=== PATIENT | female | born 1960 | race Caucasian/White ===

== ENCOUNTER 2017-08-19 23:19 | Observation (INO) | payer OTHER ==
[~2017-08-19] VITALS: Ht 172.7 cm; Wt 87.5 kg
--- NOTE | 2017-08-19 23:22 | ED CARDIAC/CP/PALPITATIONS ---
History of Present Illness General Chief Complaint: General Adult Stated Complaint: " I'M HAVING CHEST PAIN/ABD PAIN X1HOUR" Source: patient Exam Limitations: no limitations Vital Signs & Intake/Output Vital Signs & Intake/Output Vital Signs Date Time Temp Pulse Resp B/P B/P Pulse O2 O2 Flow FiO2 Mean Ox Delivery Rate 08/20 0320 69 18 142/65 96 Room Air 08/20 0300 96.2 69 18 151/70 97 Room Air 08/19 2346 Room Air 08/19 2325 95.5 71 18 156/82 96 Room Air ED Intake and Output 08/20 0000 08/19 1200 Intake Total Output Total Balance Patient 290 lb Weight Weight Reported by Patient Measurement Method Allergies Coded Allergies: codeine (UNKNOWN 08/20/17) Reconcile Medications Ibuprofen 600 MG TABLET 1 TAB PO TID PRN pain with food Lisinopril/Hydrochlorothiazide (Lisinopril-Hctz 20-12.5 MG Tab) 20 MG-12.5 MG TABLET 1 TAB PO DAILY HTN (Reported) Triage Nurses Notes Reviewed? yes Onset: Abrupt Duration: hour(s): Timing: single episode today Quality/Severity: mild, moderate Location: central Radiation: no radiation Activities at Onset: "I was snow blowing today" Prior Chest Pain/Card Workup: no prior cardiac workup Modifying Factors: Worsens With: palpation. Aspirin Today: no aspirin today Associated Symptoms: mid epigastric discomfort HPI: 57 yo woman h/o htn, presents with 1 hour of parasternal chest pain and epigastric discomfort. She notes that it began after snow blowing earlier this evening. She denies dizziness, nausea, vomiting, diarrhea, wheezing, syncopal type symptoms. She is otherwise well. Past History Travel History Traveled to [place] past 21 day No Medical History Any Pertinent Medical History? 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 No Review of Systems Review of Systems Constitutional: Reports: no symptoms. EENTM: Reports: no symptoms. Respiratory: Reports: no symptoms. Cardiovascular: Reports: no symptoms. GI: Reports: no symptoms. Genitourinary: Reports: no symptoms. Musculoskeletal: Reports: no symptoms. Skin: Reports: no symptoms. Neurological/Psychological: Reports: no symptoms. Hematologic/Endocrine: Reports: no symptoms. Immunologic/Allergic: Reports: no symptoms. All Other Systems: Reviewed and Negative Physical Exam Physical Exam General Appearance: well developed/nourished, mild distress Head: atraumatic Eyes: Bilateral: normal appearance. Ears, Nose, Throat: normal pharynx, normal ENT inspection, hearing grossly normal Neck: normal inspection, supple, full range of motion Respiratory: normal breath sounds, no respiratory distress, quiet respiration, lungs clear, parasternal chest wall tenderness and xiphoid tenderness to palpation Cardiovascular: regular rate/rhythm Gastrointestinal: normal bowel sounds, soft, non-tender, no organomegaly Back: normal inspection Extremities: normal inspection, normal capillary refill, normal range of motion, no edema Neurologic/Psych: no motor/sensory deficits, awake, alert, oriented x 3 Skin: intact, normal color, warm/dry Core Measures ACS in differential dx? Yes No ASA d/t aspirin given CVA/TIA Diagnosis No Sepsis Present: No Sepsis Focused Exam Completed? No Progress Differential Diagnosis: AMI, CHF/pulm edema, costochondritis, pulmonary embolism , unstable angina Plan of Care: Orders Procedure Date/time Status Nothing by Mouth 08/20 B Active Saline Lock 08/[address] in observation 08/20 405 Active Misc Message 08/20 0406 Active ED Holding Orders 08/20 0406 Active Vital Signs 08/20 0406 Active Code Status 08/20 0406 Active EKG 08/20 0321 Active TROPONIN LEVEL 08/20 0215 Complete EKG 08/20 0215 Active TROPONIN LEVEL 08/19 232 Complete LIPASE 08/19 232 Complete HEPATIC FUNCTION PANEL 08/19 232 Complete D-DIMER 08/19 232 Complete CBC WITHOUT DIFFERENTIAL 08/19 2321 Complete BASIC METABOLIC PANEL 08/19 232 Complete AMYLASE 08/19 2321 Complete EKG 08/19 232 Active Laboratory Tests 08/20/17 0158: Troponin I < 0.01 08/19/17 2350: Anion Gap 11, Estimated GFR > 60, BUN/Creatinine Ratio 31.3 H, Glucose 148 H, Calcium 9.6, Total Bilirubin 0.4, Direct Bilirubin 0.3, AST 42 H, ALT 71 H, Alkaline Phosphatase 115, Troponin I < 0.01, Total Protein 7.5, Albumin 4.0, Amylase 32, Lipase 147, D-Dimer High Sensitivty < 200, CBC w Diff NO MAN DIFF REQ, RBC 5.54 H, MCV 85.5, MCH 28.7, RDW 13.6, MPV 8.8, Gran % 66.9, Lymphocytes % 22.4, Monocytes % 6.4, Eosinophils % 3.5, Basophils % 0.8, Absolute Granulocytes 6.7 H, Absolute Lymphocytes 2.3, Absolute Monocytes 0.6, Absolute Eosinophils 0.4, Absolute Basophils 0.1, PUBS MCHC 33.5 Diagnostic Imaging: Viewed by Me: Radiology Read. Discussed w/RAD: Radiology Read. CXR Impression: bronchial wall thickening... full report below. Initial ED EKG: normal axis, normal intervals, normal p-waves, normal QRS complex, normal sinus rhythm Repeat EKG: unchanged Comments: ekg #3 (post-nitro)... nsr. no acute changes. Departure Departure Disposition: HOME OR SELF CARE Condition: Stable Clinical Impression Primary Impression: Chest pain Referrals: Adam Johnson DO (PCP/Family) Departure Forms: Customer Survey General Discharge Information Prescriptions: Current Visit Scripts Ibuprofen 1 TAB PO TID PRN pain #30 TAB with food Observation Note Spoke With: Rosi PHILIP PHD,Jeffry Lamas Physician Advisor Notified: ISAURA DAVID DO Place Patient In: Non-ED OBS Care Area Rationale for Observation: My rational for observation is as follows . pt with chest pain with several risk factors... htn, smoking... also with nitro responsive chest pain.... pt merits serial trop/ekg, consider stress vs cath. no heparin since chest pain free after minimal intervention and benign ekg. Critical Care Note Critical Care Note Critical Care Time: non-applicable
[2017-08-19] MEDS ORDERED: LISINOPRIL-HCT1 EACH PO (23:37)
[2017-08-20 00:07] LABS: ABSOLUTE BASOPHIL COUNT 0.1 /CUMM (0.0-0.2); ABSOLUTE EOSINOPHIL COUNT 0.4 /CUMM (0.0-0.7); ABSOLUTE GRANULOCYTE CT 6.7 /CUMM (1.4-6.5); ABSOLUTE LYMPH COUNT 2.3 /CUMM (1.2-3.4); ABSOLUTE MONOCYTE COUNT 0.6 /CUMM (0.10-0.60); BASOPHIL % 0.8 % (0.0-2.0); EOSINOPHIL % 3.5 % (0-5); GRANULOCYTE % 66.9 % (42.2-75.2); HEMATOCRIT 47.4 % (37-47); MEAN CORPUSCULAR HGB 28.7 PG (27.0-31.0); MEAN CORPUSCULAR HGB CONC 33.5 G/DL (33.0-37.0); MEAN CORPUSCULAR VOLUME 85.5 FL (81.0-99.0); MEAN PLATELET VOLUME 8.8 FL (7.4-10.4); PLATELET COUNT 188 /CUMM (130-400); RBC DISTRIBUTION WIDTH 13.6 % (11.5-14.5); RED BLOOD CELL CT 5.54 /CUMM (4.20-5.40); WHITE BLOOD CELL COUNT 10.1 /CUMM (4.8-10.8)
--- NOTE | 2017-08-20 00:10 | RADIOLOGY REPORT ---
EXAMINATION: XR PORTABLE CHEST CLINICAL INFORMATION: Chest pain COMPARISON: 06/22/2017 TECHNIQUE: Portable frontal view of the chest was obtained. FINDINGS: Mild elevation of the left hemidiaphragm is unchanged. No consolidation, edema, or effusion. Bronchial wall thickening present. No pneumothorax. The cardiomediastinal silhouette is unchanged. There is a tortuous aorta. No acute osseous abnormality. IMPRESSION: No consolidation. Bronchial wall thickening can be seen with a small airways process such as asthma or atypical/viral infection.
[2017-08-20] MEDS ORDERED: IBUPROFEN600 M1 PO (02:52)
--- NOTE | 2017-08-20 04:54 | History & Physical ---
General Information and HPI MD Statement: I have seen and personally examined MILLY NEWTON and documented this H&P. The patient is a 57 year old F who presented with a patient stated chief complaint of [atypical chest pain]. Source of Information: patient Exam Limitations: no limitations History of Present Illness: 57-year-old morbidly obese woman presented at the emergency room complaining of chest pain. PMH: hypertension, obesity, acid reflux and nicotine dependence. 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 Patient reports that yesterday evening at 3 PM 2 hours after blowing snow, while she was watching TV she developed a retrosternal, crushing, 8outof- 10 pain. Pain was constant; not worsened with movements or use of her upper body and was not improving with lying still in bed. Pain was accompanied by soreness/numbness of her both arms and tingling in the left side of her jaw, difficulty breathing, and lightheadedness. Initially she thought that this is a GI upset related to her reflux and will resolve by itself. Pain persisted and answers the patient and she decided to come to the emergency room for further evaluation. In the ED patient received 2 does of ketorolac and sublingual nitrates, which relieved her chest pain. of note, about one month ago patient has similar presentation at [facility] emergency room. She was referred to her primary care physician and was diagnosed with elevated blood pressure and is started on combination pill lisinopril/hydrochlorothiazide, which she claims that that has kept her blood pressure controlled. 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 Psychosocial History Where do you live? Home Who Do You Live With? spouse Smoking Status: Current Everyday Smoker ETOH Use: occasional use Illicit Drug Use: denies illicit drug use Living Will? yes Power of Welfare Eligibility Worker/HCP? her Functional Ability ADLs Independent: dressing, eating, toileting, bathing. Ambulation: independent IADLs Independent: shopping, housework, finances, food prep, telephone, transportation , medication admin. 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 Cardiovascular: Reports: chest pain. Denies: edema, orthopena, palpitations, peripheral edema, syncope. Respiratory: Reports: short of breath. Denies: cough, hemoptysis, orthopnea, sputum production, stridor, wheezing. Genitourinary: Reports: see HPI. Musculoskeletal: Reports: see HPI. Skin: Reports: see HPI. Neurological/Psychological: Reports: see HPI. Hematologic/Endocrine: Reports: see HPI. All Other Systems: Reviewed and Negative Exam & Diagnostic Data Last 24 Hrs of Vital Signs/I&O Vital Signs Date Time Temp Pulse Resp B/P B/P Pulse O2 O2 Flow FiO2 Mean Ox Delivery Rate 08/20 0320 69 18 142/65 96 Room Air 08/20 0300 96.2 69 18 151/70 97 Room Air 08/19 2346 Room Air 08/19 2325 95.5 71 18 156/82 96 Room Air Intake & Output 08/20 0800 08/20 0000 08/19 1600 Intake Total Output Total Balance Patient 290 lb Weight Weight Reported by Patient Measurement Method Physical Exam General Appearance Alert, Oriented X3, Cooperative, No Acute Distress, morbidly obese Skin No Rashes, No Breakdown, No Significant Lesion HEENT PERRLA Neck No JVD Cardiovascular Normal S1, Normal S2 Lungs Clear to Auscultation Abdomen Soft, No Tenderness Neurological Normal Speech, Normal Tone Extremities No Edema Vascular Normal Pulses, Pulses Symmetrical Last 24 Hrs of Labs/[place]: Laboratory Tests 08/20/17 0158: Troponin I < 0.01 08/19/17 2350: Anion Gap 11, Estimated GFR > 60, BUN/Creatinine Ratio 31.3 H, Glucose 148 H, Calcium 9.6, Total Bilirubin 0.4, Direct Bilirubin 0.3, AST 42 H, ALT 71 H, Alkaline Phosphatase 115, Troponin I < 0.01, Total Protein 7.5, Albumin 4.0, Amylase 32, Lipase 147, D-Dimer High Sensitivty < 200, CBC w Diff NO MAN DIFF REQ, RBC 5.54 H, MCV 85.5, MCH 28.7, RDW 13.6, MPV 8.8, Gran % 66.9, Lymphocytes % 22.4, Monocytes % 6.4, Eosinophils % 3.5, Basophils % 0.8, Absolute Granulocytes 6.7 H, Absolute Lymphocytes 2.3, Absolute Monocytes 0.6, Absolute Eosinophils 0.4, Absolute Basophils 0.1, PUBS MCHC 33.5 Diagnostic Data EKG Results 3 EKG is within All normal sinus rate and rhythm no deviation from neutral electric line Normal axis Assessment/Plan Assessment: This is a morbidly obese, active smoker, with < 4ME early physical activity and unknown family history for coronary artery disease presented with recurrence of her atypical chest pain. Her pain is retrosternal, nonexertional, nonreproducible, not positional and non-pleuritic. In the ED she received 2 doses of sublingual nitrates which relieved the pain. Patient data LENCHO score: 2 risk 9% MARIA ANTONIA score: 81; inhospital 0.4% D-dimer < 200; Wells score: low risk List of active problems #1 atypical chest pain: Rule out ACS versus pulmonary embolism versus aortic dissection versus anxiety/panic. #2 hypertension #3 slight increase in BUN #4 mild transaminitis- possible fatty liver change Plan * Admit to telemetry as an observation patient * she received the loading dose of aspirin 325 mg by mouth * Aspirin 81 mg by mouth daily * potential candidate for treadmill stress test or treadmill echo- per cardiology * Obtain echo in the morning- order was placed please double check with Dr. Rosi PHILIP * Check lipid panels in the a.m * Continue lisinopril 20 mg by mouth daily * Continue hydrochlorothiazide 12.5 mg daily * ativan 0.5 mg at bedtime for anxiety * BEP in the a.m. * Troponin and EKG at 8 AM * inform Dr. Aranda in the am DNR/DNI Heparin 5000 units SQ every 8 hours Proper pain management As Ranked By This Provider Problem List: 1. Chest pain syndrome 2. Hypertension Core Measures/Misc (04/29) Acute Coronary Syndrome ACS Diagnosis: No Congestive Heart Failure Congestive Heart Failure Diagnosis No Cerebrovascular Accident CVA/TIA Diagnosis: No VTE (View Protocol) VTE Risk Factors Age>40 No Mechanical VTE Prophylaxis d/t N/A MechProphylax Ordered No VTE Pharm Prophylaxis d/t NA PharmProphylax ordered Sepsis (View protocol) Sepsis Present: Yes Resident Review Statement Resident Statement: examined this patient, discussed with international logistics manager, agreed with international logistics manager, discussed with family, reviewed EMR data (avail), discussed with nursing , discussed with case mgmt, reviewed images, amended to note
[2017-08-20 09:00] VITALS: BP 134/76
[2017-08-20 11:59] VITALS: BP 142/65
[2017-08-20 15:31] VITALS: BP 128/60
--- NOTE | 2017-08-20 16:05 | Cons- Cardiology ---
General Information and HPI Consulting Request Date of Consult: 08/20/17 Requested By: Rosi PHILIP PHD,Jeffry Lamas History of Present Illness: Kasia is a 57 year female with history of hypertension, dyslipidemia and tobacco abuse. She also has a family history of premature coronary artery disease. Yesterday, this patient noted a moderate precordial chest pressure that radiated toward her left neck and was associated with a soreness and numbness in her arms bilaterally. 57-year-old morbidly obese woman presented at the emergency room complaining of chest pain. In the ER she was given NTG which appeared to relieve this discomfort. It should be noted that this discomfort began a couple hours after snow-blowing. Allergies/Medications Allergies: Coded Allergies: codeine (UNKNOWN 08/20/17) Home Med List: Ibuprofen 600 MG TABLET 1 TAB PO TID PRN pain with food Lisinopril/Hydrochlorothiazide (Lisinopril-Hctz 20-12.5 MG Tab) 20 MG-12.5 MG TABLET 1 TAB PO DAILY HTN (Reported) Review of Systems Review of Systems: A twelve point review of systems is unremarkable. 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 Psychosocial History Where Do You Live? Home Who Do You Live With? spouse Smoking Status: Current Everyday Smoker ETOH Use: occasional use Illicit Drug Use: denies illicit drug use Living Will? yes Power of Bug Trimmer/HCP? her Functional Ability ADLs Independent: dressing, eating, toileting, bathing. Ambulation: independent IADLs Independent: shopping, housework, finances, food prep, telephone, transportation , medication admin. 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 Exam & Diagnostic Data Vital Signs and I&O Vital Signs Date Time Temp Pulse Resp B/P B/P Pulse O2 O2 Flow FiO2 Mean Ox Delivery Rate 08/20 1531 98.5 61 18 128/60 96 Room Air 08/20 1524 98.5 61 18 128/60 96 Room Air 08/20 1159 97.7 61 18 142/65 97 Room Air 08/20 1157 97.7 61 18 142/65 97 Room Air 08/20 0959 98.2 61 18 134/76 08/20 0902 98.2 61 18 134/76 98 Room Air 08/20 0900 98.4 61 18 134/76 98 Room Air 08/20 0618 97.2 62 18 155/69 96 Room Air 08/20 0320 69 18 142/65 96 Room Air 08/20 0300 96.2 69 18 151/70 97 Room Air 08/19 2346 Room Air 08/19 2325 95.5 71 18 156/82 96 Room Air Intake & Output 08/20 1600 08/20 0000 08/19 1600 08/19 0000 Intake Total Output Total Balance Patient 290 lb 290 lb Weight Weight Reported by Patient Measurement Method Physical Exam: General: WD/obese female in NAD; alert and oriented x 3 HEENT: NC/AT, PERRL, EOMI Neck: no JVD, no carotid bruit Heart: RRR w/o murmur Lungs: clear bilaterally Abdomen: soft, obese, NT, +ve bowel sounds Extremities: no edema Assessment/Plan Assessment/Plan * This patient has multiple risk factors for coronary artery disease and symptoms consistent with unstable angina. We will evaluate three sets of cardiac enzymes to rule her out for an SD and will obtain an echocardiogram to assess her overall EF and to look for regional wall motion abnormalities. * Begin IV heparin, aspirin 324mg daily, Plavix 75mg daily, NTG paste 1" Q6 hrs and Atorvastatin 80mg daily. Continue her ACEI. * The patient has been advised to quit smoking. * This patient is at high risk for CAD and therefore we will pursue a cardiac catheterization on Sunday. If doing well and stable tomorrow then we will discharge this patient tomorrow and proceed with her cath as an outpatient on Sunday. Consult Acknowledgment - Thank you for your consult request.
[2017-08-20 19:27] VITALS: BP 132/80
[2017-08-20 22:06] VITALS: BP 130/78
[2017-08-21 01:16] LABS: PTT 33 SEC (25-37)
[2017-08-21 07:06] VITALS: BP 110/60
--- NOTE | 2017-08-21 08:50 | ECHOCARDIOGRAM REPORT ---
MILLY NEWTON Age: 57 : 1960 Gender: F Exam Date: 08/20/2017 10:28 Exam Location: ER Ht (in): 68 Wt (lb): 290 BSA: 2.58 BP: 155 / 69 Ordering Physician: Laurent Fleming MD Referring Physician: Laurent Fleming MD Technologist: Jv Gilmore JIMBO Room Number: 1 Indications: Chest Pain Rhythm: Sinus Technical Quality: technically limited FINDINGS Left Ventricle Normal left ventricular size, wall thickness and systolic function with no obvious regional wall motion abnormalities. Normal left ventricular diastolic filling pattern for age. The ejection fraction is visually estimated at 70%. Right Ventricle The right ventricle is normal in size and function. Right Atrium The right atrium is normal in size. Left Atrium The left atrium is normal in size. The interatrial septum is intact. Mitral Valve The mitral valve is normal in structure and function. There is no mitral regurgitation. Aortic Valve Structurally normal aortic valve without significant sclerosis or stenosis. There is no aortic regurgitation. Tricuspid Valve The tricuspid valve is normal in structure and function. There is no tricuspid regurgitation. Pulmonary artery systolic pressure is normal. Pulmonic Valve Structurally normal pulmonic valve. There is no pulmonic regurgitation. Pericardium Normal pericardium without effusion. No pleural effusion. Great Vessels Normal aortic root dimension. The aortic arch and great vessels are well seen and are normal. CONCLUSIONS 1. Normal EF of 70%. 2. Normal cardiac valves. Jeffry Aranda M.D. (Electronically Signed) Final Date: 21 August 2017 08:49 MEASUREMENTS (Male / Female) Normal Values 2D ECHO LV Diastolic Diameter PLAX 5.2 cm 4.2 - 5.9 / 3.9 - 5.3 cm LV Systolic Diameter PLAX 3.0 cm 2.1 - 4.0 cm LV Fractional Shortening PLAX 42.3 % 25 - 46 % LV Ejection Fraction 2D Teich 73.0 % IVS Diastolic Thickness 1.0 cm LVPW Diastolic Thickness 0.9 cm LV Relative Wall Thickness 0.4 RV Internal Dim ED PLAX 3.2 cm 1.9 - 3.8 cm LVOT Diameter 2.2 cm Aortic Root Diameter 3.3 cm LA Systolic Diameter LX 3.9 cm 3.0 - 4.0 / 2.7 - 3.8 cm Ascending Aorta Diameter 3.2 cm DOPPLER AV Peak Velocity 138.0 cm/s AV Peak Gradient 7.6 mmHg AV Mean Velocity 87.7 cm/s AV Mean Gradient 4.0 mmHg AV Velocity Time Integral 29.5 cm LVOT Peak Velocity 104.0 cm/s LVOT Peak Gradient 4.3 mmHg LVOT Mean Velocity 71.4 cm/s LVOT Mean Gradient 2.0 mmHg LVOT Velocity Time Integral 27.1 cm LVOT Stroke Volume 103.0 cm AV Area Cont Eq vti 3.5 cm AV Area Cont Eq pk 2.9 cm MV Peak Velocity 86.9 cm/s MV Peak Gradient 3.0 mmHg MV Mean Velocity 57.2 cm/s MV Mean Gradient 1.0 mmHg Mitral E Point Velocity 88.3 cm/s Mitral A Point Velocity 82.3 cm/s Mitral E to A Ratio 1.1 MV PHT Velocity 85.5 cm/s MV Deceleration Marathon 287.0 cm/s MV Pressure Half Time 89.4 ms MV Area PHT 2.5 cm MV Deceleration Time 250.0 ms PV Peak Velocity 85.5 cm/s PV Peak Gradient 2.9 mmHg PV Mean Velocity 57.4 cm/s PV Mean Gradient 2.0 mmHg PV Velocity Time Integral 19.3 cm LV E' Lateral Velocity 8.6 cm/s Mitral E to LV E' Lateral Ratio 10.3 LV E' Septal Velocity 8.0 cm/s Mitral E to LV E' Septal Ratio 11.1
--- NOTE | 2017-08-21 09:08 | PN-Observation ---
Observation Note Observation Note _ I have personally examined MILLY NEWTON. her disposition is uncertain at this time. Before a determination can be made, she requires continued observation for the following reasons chest pain Assessment/Plan Assessment: This is a morbidly obese, active smoker, with < 4ME early physical activity and unknown family history for coronary artery disease presented with recurrence of her atypical chest pain. Her pain is retrosternal, nonexertional, nonreproducible, not positional and non-pleuritic. In the ED she received 2 doses of sublingual nitrates which relieved the pain. Patient was treated for acs yesterday. today she continues to have chest pain relieved by belching. echo done yesterday was normal. List of active problems #1 atypical chest pain: Rule out ACS versus pulmonary embolism versus aortic dissection versus anxiety/panic. #2 hypertension Plan * continue telemetry as an observation patient * she received the loading dose of aspirin 325 mg by mouth and is now on 81mg * patient will be transferred to [facility] for cath tomorrow- NPO after midnight. * Continue lisinopril 20 mg by mouth daily * Continue hydrochlorothiazide 12.5 mg daily * no beta blockers as heart rate lower side * ativan 0.5 mg at bedtime for anxiety * BEP in the a.m. * gi consult * start ppi * continue to treat for acs DNR/DNI Heparin drip Proper pain management Problem List: 1. Chest pain 2. Hypertension Subjective Follow-up For: acs Complaints: no complaints Subjective: patient today feels the same. she still has chest pain which is relieved by burping. Review of Systems Constitutional: Reports: no symptoms. Cardiovascular: Reports: chest pain. Respiratory: Reports: no symptoms. Gastrointestinal: Reports: abdominal pain. Objective Last 24 Hrs of Vital Signs/I&O Vital Signs Date Time Temp Pulse Resp B/P B/P Pulse O2 O2 Flow FiO2 Mean Ox Delivery Rate 08/21 2215 98.0 68 20 120/70 96 08/21 1448 98.6 70 20 124/70 95 Room Air 08/21 0843 61 112/60 08/21 0706 98.2 61 20 110/60 94 Room Air Intake & Output 08/21 1600 08/21 0800 08/21 0000 Intake Total 740 300 200 Output Total Balance 740 300 200 Intake, IV 240 200 Intake, Oral 500 100 200 Patient 193 lb Weight Weight Chair scale Measurement Method Physical Exam General Appearance: Alert, Oriented X3, Cooperative, No Acute Distress Neck: Supple, No JVD Cardiovascular: Regular Rate, Normal S1, Normal S2, No Murmurs Lungs: Clear to Auscultation, Normal Air Movement Abdomen: Normal Bowel Sounds, Soft, No Tenderness Extremities: No Edema Current Medications: Current Medications Sig/Rachel Start time Last Medication Dose Route Stop Time Status Admin Acetaminophen 650 MG .STK-MED ONE 08/21 1049 DC PO 08/21 1050 Acetaminophen 650 MG Q6P PRN 08/20 0545 AC 08/21 PO 1050 Aspirin 81 MG DAILY 08/20 1000 AC 08/21 PO 0843 Atorvastatin Calcium 80 MG 1700 08/20 1345 AC 08/21 PO 1728 Clopidogrel Bisulfate 75 MG DAILY 08/21 1000 AC 08/21 PO 0843 Heparin Sodium 2,625 UNIT ONCE ONE 08/21 1215 DC (Porcine) IV 08/21 1216 Heparin Sodium 5,250 UNIT BOLUS ONE 08/21 0300 DC 08/21 (Porcine) IV 08/21 0301 0300 Heparin Sodium/ 25,000 UNIT .STK-MED ONE 08/21 1213 DC Dextrose IV 08/21 1214 Heparin Sodium/ 25,000 UNIT Q24H 08/20 1330 AC 08/21 Dextrose IV 1218 Dextrose/Water 500 ML Hydrochlorothiazide 12.5 MG DAILY 08/20 1000 AC 08/21 PO 0843 Hydrocodone Bitart/ 1 TAB Q6P PRN 08/20 0545 AC 08/21 Acetaminophen PO 2010 Lisinopril 20 MG DAILY 08/20 1000 AC 08/21 PO 0843 Morphine Sulfate 1 MG Q4P PRN 08/20 0545 IV Nicotine 7 MG Q24 08/20 1000 AC 08/21 TOP 0843 Nitroglycerin 1 GM Q6 08/21 1800 AC 08/21 TOP 2005 Nitroglycerin 0.4 MG Q 5 MINUTES X 3 DO.. 08/20 0445 SL Omeprazole 40 MG DAILY AC 08/21 1040 AC 08/21 PO 1421 Last 24 Hrs of Labs/Mics: Laboratory Tests 08/21/17 1755: APTT 62 H 08/21/17 0950: APTT 47 H 08/21/17 0035: APTT 33
[2017-08-21 10:59] LABS: PTT 47 SEC (25-37)
--- NOTE | 2017-08-21 13:51 | PN- Cardiology ---
Subjective Subjective: * This patient continues to have a lower midsternal chest discomfort without any rise in troponin. No shortness of breath. * sinus rhythm Objective Vital Signs and I&Os Vital Signs Date Time Temp Pulse Resp B/P B/P Pulse O2 O2 Flow FiO2 Mean Ox Delivery Rate 08/21 0843 61 112/60 08/21 0706 98.2 61 20 110/60 94 Room Air 08/20 2206 97.5 63 20 130/78 96 Room Air 08/20 1927 97.6 80 20 132/80 97 Room Air 08/20 1531 98.5 61 18 128/60 96 Room Air 08/20 1524 98.5 61 18 128/60 96 Room Air Intake & Output 08/21 1600 08/21 0800 08/21 0000 08/20 1600 08/20 0000 Intake Total 300 200 Output Total Balance 300 200 Intake, IV 200 Intake, Oral 100 200 Patient 193 lb 290 lb 290 lb Weight Weight Chair scale Reported by Patient Measurement Method Physical Exam: General: WD/obese female in NAD; alert and oriented x 3 HEENT: NC/AT, PERRL, EOMI Neck: no JVD, no carotid bruit Heart: RRR w/o murmur Lungs: clear bilaterally Abdomen: soft, obese, NT, +ve bowel sounds Extremities: no edema Assessment/Plan Assessment/Plan * This patient may have peptic ulcer disease. We will begin a PPI and obtain a GI consult. * In consideration of her presentation and multiple risk factors for myocardial ischemia we will proceed with a cardiac catheterization tomorrow. If WNL then an endoscopic evaluation can be pursued as an outpatient if thought appropriate by GI. * Obtain an echocardiogram to assess her overall EF and to look for regional wall motion abnormalities. * Continue IV heparin, aspirin 324mg daily, Plavix 75mg daily, NTG paste 1" Q6 hrs and Atorvastatin 80mg daily. Continue her ACEI. * The patient has been advised to quit smoking. Continue telemetry? Yes
[2017-08-21 14:48] VITALS: BP 124/70
--- NOTE | 2017-08-21 14:50 | Discharge Summary ---
Visit Information Visit Dates Admission Date: 08/20/17 Discharge Date: 08/22/2017 Hospital Course Course Attending Physician: Rosi PHILIP PHD,Jeffry Lamas Primary Care Physician: Adam Johnson DO Hospital Course: This is a 57-year-old female with past medical history significant for hypertension, morbidly obese, gerd, active smoker, with < 4ME early physical activity and known family history for coronary artery disease presented with recurrence of her atypical chest pain. Her pain is retrosternal, nonexertional, nonreproducible, not positional and non-pleuritic. In the ER she was given NTG which appeared to relieve this discomfort. of note, about one month ago patient has similar presentation at [facility] emergency room. She was referred to her primary care physician and was diagnosed with elevated blood pressure and is started on combination pill lisinopril/hydrochlorothiazide, which she claims that that has kept her blood pressure controlled. Vitals at the time of admission afebrile, heart rate 70, respiratory rate 18, blood pressure 156/82, pulse ox 96 on room air. Pertinent labs WBC 10, hemoglobin 15, hematocrit 47, platelets 198. Electrolytes within normal limits, BUN and creatinine 25 and 0.8. LFTs within normal limits. D-dimer less than 200 Urine analysis-within normal limits Amylase and lipase were normal. Troponin negative. LENCHO score: 2 risk 9% MARIA ANTONIA score: 81; inhospital 0.4% D-dimer < 200; Wells score: low risk for PE. List of active problems #1 atypical chest pain: #2 hypertension #3 slight increase in BUN #4 mild transaminitis Atypical chest pain This patient has multiple risk factors for coronary artery disease and symptoms consistent with unstable angina. Admission vitals and labs were normal. She was placed in observation in the telemetry floor. She was placed on continuous quality assurance monitor body. Serial sets of troponin and EKG were done which ruled out NE. Echocardiogram was done which showed normal ejection fraction 70%, normal cardiac valves. She was started on aspirin 81 mg daily, Plavix 75 mg daily, atorvastatin 80 mg daily. Stool guaiac was negative. She was started on IV heparin drip and continued for 48 hours. Lisinopril was continued. She was advised to quit smoking. As this patient is at high risk for coronary artery disease, assistant editor recommended to get cardiac catheterization. Patient will be transferred to other hospital on 08/22/2017 for cardiac cath. She was advised to follow-up with assistant editor closely after discharge. Upper abdominal pain. This patient possibly has peptic ulcer disease, given her heartburn and upper abdominal pain. Omeprazole was started in the hospital. Combat Systems Operator [employer] was consulted. She was advised to follow-up with the garden machinery mechanic as an outpatient for possible endoscopy. Hypertension continued on lisinopril, hydrochlorothiazide Placed on nicotine patch. DNR/DNI Heparin 5000 units SQ every 8 hours Proper pain management Allergies: Coded Allergies: codeine (UNKNOWN 08/20/17) Significant Procedures: Left Ventricle Normal left ventricular size, wall thickness and systolic function with no obvious regional wall motion abnormalities. Normal left ventricular diastolic filling pattern for age. The ejection fraction is visually estimated at 70%. Right Ventricle The right ventricle is normal in size and function. Right Atrium The right atrium is normal in size. Left Atrium The left atrium is normal in size. The interatrial septum is intact. Mitral Valve The mitral valve is normal in structure and function. There is no mitral regurgitation. Aortic Valve Structurally normal aortic valve without significant sclerosis or stenosis. There is no aortic regurgitation. Tricuspid Valve The tricuspid valve is normal in structure and function. There is no tricuspid regurgitation. Pulmonary artery systolic pressure is normal. Pulmonic Valve Structurally normal pulmonic valve. There is no pulmonic regurgitation. Pericardium Normal pericardium without effusion. No pleural effusion. Great Vessels Normal aortic root dimension. The aortic arch and great vessels are well seen and are normal. CONCLUSIONS 1. Normal EF of 70%. 2. Normal cardiac valves. Jeffry Aranda M.D. (Electronically Signed) Final Date: 21 August 2017 08:49 MEASUREMENTS (Male / Female) Normal Values 2D ECHO LV Diastolic Diameter PLAX 5.2 cm 4.2 - 5.9 / 3.9 - 5.3 cm LV Systolic Diameter PLAX 3.0 cm 2.1 - 4.0 cm LV Fractional Shortening PLAX 42.3 % 25 - 46 % LV Ejection Fraction 2D Teich 73.0 % IVS Diastolic Thickness 1.0 cm LVPW Diastolic Thickness 0.9 cm LV Relative Wall Thickness 0.4 RV Internal Dim ED PLAX 3.2 cm 1.9 - 3.8 cm LVOT Diameter 2.2 cm Aortic Root Diameter 3.3 cm LA Systolic Diameter LX 3.9 cm 3.0 - 4.0 / 2.7 - 3.8 cm Ascending Aorta Diameter 3.2 cm DOPPLER AV Peak Velocity 138.0 cm/s AV Peak Gradient 7.6 mmHg AV Mean Velocity 87.7 cm/s AV Mean Gradient 4.0 mmHg AV Velocity Time Integral 29.5 cm LVOT Peak Velocity 104.0 cm/s LVOT Peak Gradient 4.3 mmHg LVOT Mean Velocity 71.4 cm/s LVOT Mean Gradient 2.0 mmHg LVOT Velocity Time Integral 27.1 cm LVOT Stroke Volume 103.0 cm AV Area Cont Eq vti 3.5 cm AV Area Cont Eq pk 2.9 cm MV Peak Velocity 86.9 cm/s MV Peak Gradient 3.0 mmHg MV Mean Velocity 57.2 cm/s MV Mean Gradient 1.0 mmHg Mitral E Point Velocity 88.3 cm/s Mitral A Point Velocity 82.3 cm/s Mitral E to A Ratio 1.1 MV PHT Velocity 85.5 cm/s MV Deceleration [place] 287.0 cm/s MV Pressure Half Time 89.4 ms MV Area PHT 2.5 cm MV Deceleration Time 250.0 ms PV Peak Velocity 85.5 cm/s PV Peak Gradient 2.9 mmHg PV Mean Velocity 57.4 cm/s PV Mean Gradient 2.0 mmHg PV Velocity Time Integral 19.3 cm LV E' Lateral Velocity 8.6 cm/s Mitral E to LV E' Lateral Ratio 10.3 LV E' Septal Velocity 8.0 cm/s Mitral E to LV E' Septal Ratio 11.1 Pertinent Lab Results: cxr FINDINGS: Mild elevation of the left hemidiaphragm is unchanged. No consolidation, edema, or effusion. Bronchial wall thickening present. No pneumothorax. The cardiomediastinal silhouette is unchanged. There is a tortuous aorta. No acute osseous abnormality. IMPRESSION: No consolidation. Bronchial wall thickening can be seen with a small airways process such as asthma or atypical/viral infection. Disposition Summary Disposition Principal Diagnosis: Atypical chest pain Additional Diagnosis: GERD Discharge Disposition: other general hospital Discharge Instructions General Discharge Information Code Status: Full Code Patient's Diet: As tolerated Patient's Activity: As tolerated Follow-Up Instructions/Appts: Please follow-up with PCP in one week after discharge. Please follow-up with garden machinery mechanic in 1 week after discharge. Please follow-up with assistant editor in 1 week after discharge Medications at Discharge Discharge Medications: Continue taking these medications: Lisinopril/Hydrochlorothiazide (Lisinopril-Hctz 20-12.5 MG Tab) 20 MG-12.5 MG TABLET 1 Tablet ORAL DAILY Qty = 30 Start taking the following new medications: Clopidogrel Bisulfate (Plavix) 75 MG TABLET 75 Milligram ORAL DAILY Qty = 60 No Refills Atorvastatin Calcium (Atorvastatin Calcium) 80 MG TABLET 1 Tablet ORAL 5 PM Qty = 60 No Refills Nitroglycerin (Nitro-Bid) 2 % OINT...G. 1 Gram On the skin EVERY SIX HOURS Qty = 1 Refills = 1 Omeprazole (Omeprazole) 20 MG CAPSULE.DR 40 Milligram ORAL DAILY BEFORE BREAKFAST Qty = 30 No Refills Heparin Sodium,Porcine/D5w (Heparin-D5w 25,000 Unit/250 Ml) 25,000 UNIT/250 ML ( 100 UNIT/ML) IV.SOLN 25,000 Unit INTRAVEN CONTINUOUS INFUSION Qty = 1 No Refills Aspirin (Aspirin*) 325 MG TABLET 1 Tablet ORAL DAILY Qty = 30 No Refills Copies To: Adam Johnson DO
--- NOTE | 2017-08-21 17:56 | Cons- Gastroenterology ---
General Information and HPI Consulting Request Date of Consult: 08/21/17 Requested By: Rosi PHILIP PHD,Jeffry Lamas Reason for Consult: 1. Gastroesophageal reflux 2. Epigastric discomfort Source of Information: patient Exam Limitations: no limitations History of Present Illness: Patient is a 57-year-old female with a past medical history of hypertension which has long been untreated. She was recently started on antihypertensives. Patient reports that she was shoveling snow when she felt her "heart was beating out of her chest" and that she felt weak and extremely fatigued and new something was wrong. Later that evening while sitting in her chair watching TV she developed 8 out of 10 retrosternal chest pain associated with shortness of breath. It did not resolve. She had had similar symptoms approximately 3 weeks prior to admission and was seen in the ED at that time she was diagnosed with hypertension and discharged to home and started on antihypertensive agent by her PCP. She had similar symptoms with exercise in the week prior to admission. We are consulted for evaluation of gastrointestinal symptoms. Patient is being transferred in the a.m. to [facility] for cardiac catheterization. Patient denies melena or bright red blood per rectum. She has had a colonoscopy within the past several years which was entirely normal. She has had no nausea or vomiting. She has had no dysphagia or odynophagia and has had no weight loss fever or shaking chills. Allergies/Medications Allergies: Coded Allergies: codeine (UNKNOWN 08/20/17) Home Med List: Ibuprofen 600 MG TABLET 1 TAB PO TID PRN pain with food Lisinopril/Hydrochlorothiazide (Lisinopril-Hctz 20-12.5 MG Tab) 20 MG-12.5 MG TABLET 1 TAB PO DAILY HTN (Reported) Current Medications: Current Medications Sig/Rachel Start time Last Medication Dose Route Stop Time Status Admin Acetaminophen 650 MG Q6P PRN 08/20 0545 AC 08/21 PO 1050 Aspirin 81 MG DAILY 08/20 1000 AC 08/21 PO 0843 Atorvastatin Calcium 80 MG 1700 08/20 1345 AC 08/21 PO 1728 Clopidogrel Bisulfate 75 MG DAILY 08/21 1000 AC 08/21 PO 0843 Heparin Sodium 2,625 UNIT ONCE ONE 08/21 1215 DC (Porcine) IV 08/21 1216 Heparin Sodium 5,250 UNIT BOLUS ONE 08/21 0300 DC 08/21 (Porcine) IV 08/21 0301 0300 Heparin Sodium/ 25,000 UNIT Q24H 08/20 1330 AC 08/21 Dextrose IV 1218 Dextrose/Water 500 ML Hydrochlorothiazide 12.5 MG DAILY 08/20 1000 AC 08/21 PO 0843 Hydrocodone Bitart/ 1 TAB Q6P PRN 08/20 0545 AC 08/21 Acetaminophen PO 1421 Lisinopril 20 MG DAILY 08/20 1000 AC 08/21 PO 0843 Morphine Sulfate 1 MG Q4P PRN 08/20 0545 AC IV Nicotine 7 MG Q24 08/20 1000 AC 08/21 TOP 0843 Nitroglycerin 1 GM Q6 08/21 1800 AC TOP Nitroglycerin 0.4 MG Q 5 MINUTES X 3 DO.. 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 Psychosocial History Where Do You Live? Home Who Do You Live With? spouse Smoking Status: Current Everyday Smoker ETOH Use: occasional use Illicit Drug Use: denies illicit drug use Living Will? yes Power of Miniature Set Designer/HCP? her Functional Ability ADLs Independent: dressing, eating, toileting, bathing. Ambulation: independent IADLs Independent: shopping, housework, finances, food prep, telephone, transportation , medication admin. 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 Exam & Diagnostic Data Vital Signs and I&O Vital Signs Date Time Temp Pulse Resp B/P B/P Pulse O2 O2 Flow FiO2 Mean Ox Delivery Rate 08/21 1448 98.6 70 20 124/70 95 Room Air 08/21 0843 61 112/60 08/21 0706 98.2 61 20 110/60 94 Room Air 08/20 2206 97.5 63 20 130/78 96 Room Air 08/20 1927 97.6 80 20 132/80 97 Room Air Intake & Output 08/21 1600 08/21 0400 08/20 1600 08/20 0400 08/19 1600 08/19 0400 Intake Total 1040 200 Output Total Balance 1040 200 Intake, IV 440 Intake, Oral 600 200 Patient 193 lb 290 lb 290 lb Weight Weight Chair scale Reported by Patient Measurement Method Physical Exam General Appearance: well developed/nourished, no apparent distress, awake Head: atraumatic, normal appearance Eyes: Bilateral: normal appearance. Ears, Nose, Throat: hearing grossly normal Neck: normal inspection, supple, full range of motion, trachea mid line Respiratory: normal breath sounds, lungs clear Cardiovascular: regular rate/rhythm, Normal S1 and S2 without rub, murmur or gallop Gastrointestinal: normal bowel sounds, soft, non-tender Neurologic/Psych: no motor/sensory deficits, awake, alert, oriented x 3 Cranial Nerves: Cranial Nerves II-XII intact Skin: intact, warm/dry Results Pertinent Lab Results: Laboratory Tests 08/21 08/21 08/20 08/20 08/20 0950 0035 0819 0819 0158 Chemistry Troponin I (< 0.11 ng/ml) Cancelled < 0.01 < 0.01 Triglycerides (<150 mg/dL) 112 Cholesterol (<200 MG/DL) 170 LDL Cholesterol, Calc (65 - 129 mg/dL) 105 HDL Cholesterol (40 - 60 mg/dL) 43 Cholesterol/HDL Ratio (0.00 - 4.23 %) 4 TSH (0.270 - 4.200 uIU/mL) 1.460 Free T4 (0.64 - 1.79 ng/dL) 0.95 Coagulation APTT (25 - 37 SEC) 47 H 33 08/19 2350 Chemistry Sodium (137 - 145 mmol/L) 139 Potassium (3.5 - 5.1 mmol/L) 4.0 Chloride (98 - 107 mmol/L) 104 Carbon Dioxide (22 - 30 mmol/L) 24 Anion Gap (5 - 16) 11 BUN (7 - 17 mg/dL) 25 H Creatinine (0.5 - 1.0 mg/dL) 0.8 Estimated GFR (>60 ml/min) > 60 BUN/Creatinine Ratio (7 - 25 %) 31.3 H Glucose (65 - 99 mg/dL) 148 H Calcium (8.4 - 10.2 mg/dL) 9.6 Total Bilirubin (0.2 - 1.3 mg/dL) 0.4 Direct Bilirubin (< 0.4 mg/dL) 0.3 AST (14 - 36 U/L) 42 H ALT (9 - 52 U/L) 71 H Alkaline Phosphatase (<127 U/L) 115 Troponin I (< 0.11 ng/ml) < 0.01 Total Protein (6.3 - 8.2 g/dL) 7.5 Albumin (3.5 - 5.0 g/dL) 4.0 Amylase (30 - 110 U/L) 32 Lipase (23 - 300 U/L) 147 Coagulation D-Dimer High Sensitivty (0 - 243 ng/ml) < 200 Hematology CBC w Diff NO MAN DIFF REQ WBC (4.8 - 10.8 /CUMM) 10.1 RBC (4.20 - 5.40 /CUMM) 5.54 H Hgb (12.0 - 16.0 G/DL) 15.9 Hct (37 - 47 %) 47.4 H MCV (81.0 - 99.0 FL) 85.5 MCH (27.0 - 31.0 PG) 28.7 RDW (11.5 - 14.5 %) 13.6 Plt Count (130 - 400 /CUMM) 188 MPV (7.4 - 10.4 FL) 8.8 Gran % (42.2 - 75.2 %) 66.9 Lymphocytes % (20.5 - 51.1 %) 22.4 Monocytes % (1.7 - 9.3 %) 6.4 Eosinophils % (0 - 5 %) 3.5 Basophils % (0.0 - 2.0 %) 0.8 Absolute Granulocytes (1.4 - 6.5 /CUMM) 6.7 H Absolute Lymphocytes (1.2 - 3.4 /CUMM) 2.3 Absolute Monocytes (0.10 - 0.60 /CUMM) 0.6 Absolute Eosinophils (0.0 - 0.7 /CUMM) 0.4 Absolute Basophils (0.0 - 0.2 /CUMM) 0.1 PUBS MCHC (33.0 - 37.0 G/DL) 33.5 Assessment/Plan Assessment/Recommendations: IMPRESSION: 1. Palpitations, Chest Pain 2. Epigastric Discomfort, Gastroesophageal Reflux Disease RECOMMENDATIONS: 1. Left Heart Catheterization at [facility] tomorrow 2. Patient given my contact information and ask all the office to make an appointment for evaluation of gastroesophageal reflux disease once cleared by cardiology Consult Acknowledgment - Thank you for your consult request.
[2017-08-21 19:49] LABS: PTT 62 SEC (25-37)
[2017-08-21 22:15] VITALS: BP 120/70
[2017-08-22] MEDS ORDERED: HEPARIN-D525000 UNIT IV (05:45)
[2017-08-22] MEDS ORDERED: PLAVIX75 M1 PO (05:45)
[2017-08-22] MEDS ORDERED: OMEPRAZOLE20 M2 PO (05:49)
[2017-08-22] MEDS ORDERED: NITRO-BID1 GM TOP (05:49)
[2017-08-22] MEDS ORDERED: ASPIRIN325 M2 PO (05:49)
[2017-08-22] MEDS ORDERED: ATORVASTATIN CA80 M1 PO (05:49)
[2017-08-22 06:37] VITALS: BP 140/80
[2017-08-22 07:51] LABS: ABSOLUTE BASOPHIL COUNT 0 /CUMM (0.0-0.2); ABSOLUTE EOSINOPHIL COUNT 0.3 /CUMM (0.0-0.7); ABSOLUTE GRANULOCYTE CT 4.8 /CUMM (1.4-6.5); ABSOLUTE MONOCYTE COUNT 0.5 /CUMM (0.10-0.60); BASOPHIL % 0.5 % (0.0-2.0); EOSINOPHIL % 4.2 % (0-5); HEMATOCRIT 45.4 % (37-47); MEAN CORPUSCULAR HGB 28.6 PG (27.0-31.0); MEAN CORPUSCULAR HGB CONC 33.7 G/DL (33.0-37.0); MEAN CORPUSCULAR VOLUME 84.9 FL (81.0-99.0); MEAN PLATELET VOLUME 9.2 FL (7.4-10.4); PLATELET COUNT 180 /CUMM (130-400); RBC DISTRIBUTION WIDTH 13.5 % (11.5-14.5); RED BLOOD CELL CT 5.34 /CUMM (4.20-5.40); WHITE BLOOD CELL COUNT 7.6 /CUMM (4.8-10.8)
--- NOTE | 2017-08-22 07:56 | Patient Discharge Instructions ---
Discharge Instructions General Discharge Information You were seen/treated for: unstable angina. Special Instructions: f/u pcp in one wee after d/c. f/u novelties sales representative in one week after d/c. f/u gastro in one week after d/c. Diet Continue normal diet: Yes Activity Full Activity/No Limits: Yes Acute Coronary Syndrome Inclusion Criteria At DC or during hospital stay patient has or had the following: ACS DIAGNOSIS Yes Discharge Core Measures Meds if any: Prescribed or Continued at Discharge Meds if any: NOT Prescribed or Continued at Discharge Congestive Heart Failure Inclusion Criteria At DC or during hospital stay patient has or had the following: CHF DIAGNOSIS No Discharge Core Measures Meds if any: Prescribed or Continued at Discharge Meds if any: NOT Prescribed or Continued at Discharge Cerebrovascular accident Inclusion Criteria At DC or during hospital stay patient has or had the following: CVA/TIA Diagnosis No Discharge Core Measures Meds if any: Prescribed or Continued at Discharge Meds if any: NOT Prescribed or Continued at Discharge Venous thromboembolism Inclusion Criteria VTE Diagnosis No VTE Type NONE VTE Confirmed by (Test) NONE Discharge Core Measures - Per Current guidelines, there needs to be overlap - treatment for the first 5 days of Warfarin therapy. - If discharged on Warfarin prior to 5 days of - overlap therapy, the patient will need to be - assessed for post discharge needs including - *Post discharge parental anticoagulation - *Warfarin and/or parental anticoagulation education - *Follow up date to check INR post discharge At least 5 days overlap therapy as Inpatient Yes Meds if any: Prescribed or Continued at Discharge Note: Overlap Therapy is Warfarin and Anticoagulant Meds if any: NOT Prescribed or Continued at Discharge
[2017-08-22 08:18] LABS: PTT 93 SEC (25-37)
[2017-08-22 08:58] VITALS: BP 140/80
--- NOTE | 2017-08-22 11:30 | PN-Observation ---
Observation Note Observation Note _ I have personally examined MILLY NEWTON. her disposition is uncertain at this time. Before a determination can be made, she requires continued observation for the following reasons chest pain and shortness of breath Assessment/Plan Assessment: This is a morbidly obese, active smoker, with < 4ME early physical activity and unknown family history for coronary artery disease presented with recurrence of her atypical chest pain. Her pain is retrosternal, nonexertional, nonreproducible, not positional and non-pleuritic. In the ED she received 2 doses of sublingual nitrates which relieved the pain. Patient was treated for acs yesterday. today she continues to have chest pain relieved by belching. echo done yesterday was normal. List of active problems #1 atypical chest pain: Rule out ACS versus pulmonary embolism versus aortic dissection versus anxiety/panic. #2 hypertension Plan * continue telemetry as an observation patient * continue asa 81mg * patient will be transferred to [facility] for cath today- has been NPO after midnight. * Continue lisinopril 20 mg by mouth daily * Continue hydrochlorothiazide 12.5 mg daily * no beta blockers as heart rate lower side * ativan 0.5 mg at bedtime for anxiety * continue ppi with patient to follow up with GI if cath negative DNR/DNI Heparin drip Proper pain management Problem List: 1. Chest pain 2. Hypertension Subjective Follow-up For: chest pain shortness of breath Complaints: no complaints Subjective: patient to go for cardiac cath today. she states that she feels fine. no compliants and eager to get cath done. Review of Systems Constitutional: Reports: no symptoms. Objective Last 24 Hrs of Vital Signs/I&O Vital Signs Date Time Temp Pulse Resp B/P B/P Pulse O2 O2 Flow FiO2 Mean Ox Delivery Rate 08/22 899 Room Air 08/22 0858 67 140/80 08/22 0637 97.7 67 20 140/80 95 Room Air 08/21 2215 98.0 68 20 120/70 96 Intake & Output 08/22 1600 08/22 0800 08/22 0000 Intake Total 342.4 650 Output Total Balance 342.4 650 Intake, IV 242.4 250 Intake, Oral 100 400 Physical Exam General Appearance: Alert, Oriented X3, Cooperative, No Acute Distress Current Medications: Current Medications Sig/Rachel Start time Last Medication Dose Route Stop Time Status Admin Acetaminophen 650 MG Q6P PRN 08/20 0545 DCD 08/21 PO 1050 Aspirin 325 MG DAILY 08/22 1000 DCD 08/22 PO 0603 Aspirin 81 MG DAILY 08/20 1000 DC 08/21 PO 0843 Atorvastatin Calcium 80 MG 1700 08/20 1345 DCD 08/21 PO 1728 Clopidogrel Bisulfate 75 MG DAILY 08/21 1000 DCD 08/22 PO 0858 Heparin Sodium/ 25,000 UNIT Q24H 08/20 1330 DCD 08/22 Dextrose IV 0318 Dextrose/Water 500 ML Hydrochlorothiazide 12.5 MG DAILY 08/20 1000 DCD 08/22 PO 0858 Hydrocodone Bitart/ 1 TAB Q6P PRN 08/20 0545 DCD 08/22 Acetaminophen PO 0905 Lisinopril 20 MG DAILY 08/20 1000 DCD 08/22 PO 0858 Morphine Sulfate 1 MG Q4P PRN 08/20 0545 DCD IV Nicotine 7 MG Q24 08/20 1000 DCD 08/22 TOP 0859 Nitroglycerin 1 GM Q6 08/21 1800 DC 08/22 TOP 0040 Nitroglycerin 0.4 MG Q 5 MINUTES X 3 DO.. 08/20 0545 DCD SL Omeprazole 40 MG DAILY AC 08/21 1040 DCD 08/22 PO 0603 Last 24 Hrs of Labs/Mics: Laboratory Tests 08/22/17 1500: APTT Cancelled 08/22/17 0645: Anion Gap 13, Estimated GFR > 60, BUN/Creatinine Ratio 35.0 H, APTT 93 H, CBC w Diff NO MAN DIFF REQ, RBC 5.34, MCV 84.9, MCH 28.6, RDW 13.5, MPV 9.2, Gran % 63.0, Lymphocytes % 26.3, Monocytes % 6.0, Eosinophils % 4.2, Basophils % 0.5, Absolute Granulocytes 4.8, Absolute Lymphocytes 2.0, Absolute Monocytes 0.5, Absolute Eosinophils 0.3, Absolute Basophils 0, PUBS MCHC 33.7
== END 2017-08-22 11:00 | disposition short-term general hospital (02) ==
LOC: ERH 23:19 → ERHI 08-20 04:35 → ENRESERV 08-20 17:02 → ENTRNSPT 08-20 18:09 → 1NO 08-20 18:09 → CMPTRNSPT 08-20 18:30 → 1NO 08-21 11:01 → ENPENDDIS 08-22 10:43 → 1NO 08-22 11:00
PROVIDERS: Internal Medicine Interventional Cardiology; Pediatrics; Student in an Organized Health Care Education/Training Program
DX: R07.89 Other chest pain (principal); E78.5 Hyperlipidemia, unspecified; F17.200 Nicotine dependence, unspecified, uncomplicated; E66.01 Morbid (severe) obesity due to excess calories; I10 Essential (primary) hypertension; K21.9 Gastro-esophageal reflux disease without esophagitis
CPT/HCPCS: 36415; 71045; 82436; 93005; 93010; 93306; 96372; 96374; G0378; J1644; J1885; J3490; J7060

== ENCOUNTER 2018-01-06 06:24 | Emergency (ER) | payer OTHER ==
[~2018-01-06] VITALS: Ht 170.2 cm; Wt 136.1 kg
[~2018-01-06 06:24] MED LIST: ASPIRIN325 M2 PO; ATORVASTATIN CA80 M1 PO; HEPARIN-D525000 UNIT IV; IBUPROFEN600 M1 PO; LISINOPRIL-HCT1 EACH PO; NITRO-BID1 GM TOP; OMEPRAZOLE20 M2 PO; PLAVIX75 M1 PO
--- NOTE | 2018-01-06 07:02 | ED UPPER/LOWER EXTREMITY COMPL ---
History of Present Illness General Chief Complaint: Lower Extremity Problems Stated Complaint: "RT HIP PAIN" Source: patient, old records Exam Limitations: no limitations Vital Signs & Intake/Output Vital Signs & Intake/Output Vital Signs Date Time Temp Pulse Resp B/P B/P Pulse O2 O2 Flow FiO2 Mean Ox Delivery Rate 01/06 0625 97.9 71 20 34/84 95 Room Air Allergies Coded Allergies: codeine (UNKNOWN 08/20/17) Reconcile Medications Aspirin (Aspirin*) 325 MG TABLET 1 TAB PO DAILY Heart Atorvastatin Calcium 80 MG TABLET 1 TAB PO 1700 HLP Baclofen 10 MG TABLET 1 TAB PO TIDPRN PRN muscle spasm/strain Clopidogrel Bisulfate (Plavix) 75 MG TABLET 75 MG PO DAILY Heart Heparin Sodium,Porcine/D5w (Heparin-D5w 25,000 Unit/250 Ml) 25,000 UNIT/250 ML ( 100 UNIT/ML) IV.SOLN 25,000 UNIT IV CONTINOUS INFUSION Heart Ibuprofen 600 MG TABLET 1 TAB PO Q6P PRN pain with food Lidocaine (Lidoderm) 5 % ADH..PATCH 1 PAT TOP DAILY arthritis may wear up to 12 hours Lisinopril/Hydrochlorothiazide (Lisinopril-Hctz 20-12.5 MG Tab) 20 MG-12.5 MG TABLET 1 TAB PO DAILY HTN (Reported) Nitroglycerin (Nitro-Bid) 2 % OINT...G. 1 GM TOP Q6 chest pain Omeprazole 20 MG CAPSULE.DR 40 MG PO DAILY AC GI Prednisone 20 MG TABLET 1 TAB PO BID arthritis Tramadol HCl (Ultram) 50 MG TABLET 1-2 TAB PO Q6P PRN severe pain Core Measure Meds Pre-Hospital aspirin Triage Note: PT HERE WITH C/O RIGHT HIP PAIN THAT HAS BEEN GOING ON "FOR AWHILE". PT DENIES TRAUMA. PT STATES THAT SHE ICED IT LAST NIGHT AND TOOK MOTRIN AND WOKE UP WITH 10/10 PAIN. Triage Nurses Notes Reviewed? yes Onset: for a long time Duration: continues in ED, unknown duration Timing: recent history Severity: moderate, severe Pain/Injury Location: Right: Hip. Method of Injury: unknown Modifying Factors: Improves With: immobilization, rest. Worsens With: movement. Associated Symptoms: GCS 15 since, stiffness LMP (ages 10-50): post menopausal : No Patient currently breastfeeds: No HPI: For a long time patient has had right hip pain that has recently worsened. It is sharp constant worse with movement walking radiating from the buttock to the lower leg. She denies fever chills nausea vomiting diarrhea abdominal pain chest pain shortness breath headache dysuria rash bleeding change in motor sensory function change in bowel bladder habit. Past History Travel History Traveled to [place] past 21 day No Medical History Any Pertinent Medical History? 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 Hx Contributory? No Review of Systems Review of Systems Constitutional: Reports: no symptoms. EENTM: Reports: no symptoms. Respiratory: Reports: no symptoms. Cardiovascular: Reports: no symptoms. Gastrointestinal/Abdominal: Reports: no symptoms. Genitourinary: Reports: no symptoms. Musculoskeletal: Reports: see HPI, back pain, joint pain. Skin: Reports: no symptoms. Neurological/Psychological: Reports: no symptoms. Hematologic/Endocrine: Reports: no symptoms. Immunological: Reports: no symptoms. All Other Systems: Reviewed and Negative Physical Exam Physical Exam General Appearance: well developed/nourished, alert, awake, anxious, mild distress, obese (morbidly) Head: atraumatic, normal appearance Eyes: Bilateral: normal appearance, PERRL, EOMI. Ears, Nose, Throat: normal pharynx, normal ENT inspection, hearing grossly normal Neck: normal inspection, supple, full range of motion, no midline tenderness Cardiovascular/Respiratory: normal breath sounds, normal peripheral pulses, regular rate/rhythm, no respiratory distress Peripheral Pulses: 4+ carotid (R), 4+ carotid (L) Back: normal inspection, normal range of motion, no vertebral tenderness Shoulder Left: normal range of motion, normal inspection Shoulder Right: normal range of motion, normal inspection Elbow Left: normal range of motion, normal inspection Elbow Right: normal range of motion, normal inspection Hand Left: normal inspection, normal range of motion Hand Right: normal inspection, normal range of motion Upper Extremity Reflexes: 2+: bicep (R), bicep (L). Leg Left: normal range of motion, normal inspection Leg Right: normal range of motion, normal inspection Hip Left: normal range of motion, normal inspection Hip Right: normal inspection, soft tissue tenderness Knee Left: normal range of motion, normal inspection Knee Right: normal range of motion, normal inspection Foot Left: normal inspection, normal range of motion Foot Right: normal inspection, normal range of motion Lower Extremity Reflexes: 2+: knee (R), knee (L). Neurologic/Tendon: normal sensation, normal motor functions, normal tendon functions Skin: intact, normal color, warm/dry Lymphatic: no anterior cervical shin Progress Differential Diagnosis: contusion, dislocation, sprain Plan of Care: Current Medications Sig/Rachel Start time Last Medication Dose Stop Time Status Admin Cyclobenzaprine HCl 10 MG ONCE ONE 01/06 830 UNVr (Flexeril 10MG Tab) 01/06 831 Ibuprofen 600 MG ONCE ONE 01/06 830 UNVr (Motrin) 01/06 831 Prednisone 60 MG ONCE ONE 01/06 830 UNVr 01/06 831 Diagnostic Imaging: Viewed by Me: Radiology Read. Discussed w/RAD: Radiology Read. Radiology Impression: Right hip arthritis., Scoliosis and degenerative change. No fracture seen. Departure Departure Time of Disposition: 810 Disposition: HOME OR SELF CARE Condition: Stable Clinical Impression Primary Impression: Arthritis of right hip Secondary Impressions: Arthritis, lumbar spine Referrals: Carina PHILIP,Thony Johnson DO,Adam Houston (PCP/Family) Additional Instructions: Use a cane to help with walking. Departure Forms: Customer Survey General Discharge Information RELEASE- WORK Prescriptions: Current Visit Scripts Prednisone 1 TAB PO BID #10 TAB Ibuprofen 1 TAB PO Q6P PRN pain #50 TAB with food Lidocaine (Lidoderm) 1 PAT TOP DAILY #30 PAT may wear up to 12 hours Tramadol HCl (Ultram) 1-2 TAB PO Q6P PRN severe pain #30 TAB Baclofen 1 TAB PO TIDPRN PRN muscle spasm/strain #30 TAB
--- NOTE | 2018-01-06 08:04 | RADIOLOGY REPORT ---
EXAMINATION: XR LUMBOSACRAL SPINE CLINICAL INFORMATION: Low back pain radiating to the legs COMPARISON: None TECHNIQUE: 4 views of the lumbosacral spine were obtained. FINDINGS: There is mild curvature of the lumbar spine to the left. No fracture, dislocation or bone lesion is seen. There is evidence of multilevel degenerative spondylosis. There is evidence of degenerative disc disease at L3-L4, lower thoracic spine and at T12-L1. There is evidence of atherosclerotic disease. IMPRESSION: Scoliosis and degenerative change. No fracture seen.
--- NOTE | 2018-01-06 08:05 | RADIOLOGY REPORT ---
EXAMINATION: XR HIP, RIGHT CLINICAL INFORMATION: Pain COMPARISON: None TECHNIQUE: Two views of the right hip. FINDINGS: Bone alignment is normal. No fracture or dislocation is seen. There is arthritis at the right hip joint with joint space narrowing and osteophyte formation. There is soft tissue ossification adjacent to the right greater trochanter. Soft tissues are otherwise unremarkable. IMPRESSION: Right hip arthritis.
[2018-01-06] MEDS ORDERED: IBUPROFEN600 M1 PO (08:15)
[2018-01-06] MEDS ORDERED: LIDODERM1 EACH TOP (08:15)
[2018-01-06] MEDS ORDERED: ULTRAM50 M1 PO (08:15)
[2018-01-06] MEDS ORDERED: PREDNISONE20 M1 PO (08:15)
[2018-01-06] MEDS ORDERED: BACLOFEN10 M1 PO (08:17)
[2018-01-06 08:27] VITALS: BP 140/80
== END 2018-01-06 08:27 ==
LOC: ERH 06:24
DX: M16.11 Unilateral primary osteoarthritis, right hip (principal); M47.816 Spondylosis without myelopathy or radiculopathy, lumbar region
CPT/HCPCS: 72110; 73502-RT